=== PATIENT | female | born 1950 | race Caucasian/White ===

== ENCOUNTER 2016-11-08 10:20 | Day surgery (SDC) | payer MEDICAID, OTHER ==
--- NOTE | 2016-11-08 08:29 | HP ---
PROCEDURE DATE: 11/08/16 HISTORY OF PRESENT ILLNESS: Patient is a 66 y/o with upper esophagus problems with dysphagia. Feels likes things getting stuck when she eats. History of dilatation a year or so ago in the past. Is in need of upper endoscopy, possible dilatation again. PAST MEDICAL HISTORY: She has had history of dysphagia or esophageal narrowing in the past. Also, some reflux. CURRENT MEDICATIONS: Omeprazole, calcium, Flonase as well as some eye drops. ALLERGIES: NKDA. PAST SURGICAL HISTORY: Had EGD with dilatation in the past. FAMILY HISTORY: Negative with regards to this problem. SOCIAL HISTORY: No smoking or alcohol abuse. REVIEW OF SYSTEMS: 10 systems reviewed per admission assessment. No chest pain or palpitations. Other systems negative or noncontributory other than above and per preadmission questionnaire. PHYSICAL EXAMINATION: GENERAL: No acute distress. HEENT: Sclerae nonicteric. NECK: No JVD. CHEST: Equal excursion. Nonlabored breathing. CVS: Regular rate and rhythm. ABDOMEN: Soft. No peritoneal signs. EXTREMITIES: No significant edema. NEURO: A&O, moving extremities symmetrically. No gross motor deficits noted. IMPRESSION: 1. SYMPTOMATIC DYSPHAGIA UPPER ESOPHAGUS. [place] she would benefit from EGD, possible biopsy, possible dilatation pending operative finding. Risks and benefits explained in detail, but not limited to, bleeding; infection; small risk of bowel injury or perforation possibly requiring open procedure or major procedure and ongoing morbidity; small risk of missed or nondiagnosis or incomplete exam; possibility that if dilatation performed she could have recurrent symptoms down the road and require other procedures or repeat dilatation in the future. She also understands possibly even with dilatation, may fail to improve her symptoms if she has more of a functional or neurologic problem than a mechanical narrowing. She understands all of the above as well as risks of sedation, but not limited to. Will proceed with EGD, possible biopsy, possible dilatation as an outpatient.
[~2016-11-08 10:20] MED LIST: DIPRIVAN 200 MG/20 ML IV ONE; Ketamine HCl 50 MG/ML IJ ONE; Lactated Ringers 1,000 ML IV ONE; Lactated Ringers 1,000 ML IV SCH
[2016-11-08] MEDS ORDERED: Lactated Ringers 1,000 ML IV ONE (12:14)
[2016-11-08 13:08] VITALS: O2SAT 98
[2016-11-08 13:47] VITALS: BP 132/76; PULSE 83
--- NOTE | 2016-11-08 14:13 | OP ---
SURGERY DATE/TIME: 11/08/2016 1118 PREOPERATIVE DIAGNOSIS: Dysphagia, history of esophageal stricture and esophageal dilatation in the past. POSTOPERATIVE DIAGNOSES: 1) Esophageal stricture mid to proximal esophagus. 2) Distal gastroesophagitis versus metaplasia or Roblero's, path pending. 3) Very small hiatal hernia. 4) Mild gastritis. PROCEDURES: 1) EGD with cold biopsy of the antrum for Helicobacter pylori for MARY ANN-test. 2) Cold biopsy distal esophagus to evaluate for Roblero's esophagus. 3) Esophageal balloon dilatation, esophageal stricture, size 20 balloon dilator. SURGEON: Dr. Zach Smart. REGISTERED NURSE CARDIOVASCULAR ICU: Dheeraj Bautista, Medical Student III. ANESTHESIA: MAC. ESTIMATED BLOOD LOSS: Minimal. INDICATIONS: As noted above. Risks and benefits explained in detail and not limited to and consent obtained. DESCRIPTION OF PROCEDURE AND FINDINGS: The patient is taken to the endoscopy room. She did not have any further questions. MAC anesthesia was introduced. After official time out and no disagreement with planned procedure. Bite block positioned. Video gastroscope easily passed down the esophagus. There was a narrowed area in the mid and proximal esophagus about 23 cm or so from the incisors. There was no obvious mass in here just a narrowed stricture area with smooth mucosa. The scope was passed down through here down into the stomach to the junction of the second and third portion of duodenum. The duodenum, duodenal bulb was grossly unremarkable. Back in the stomach had some mild gastritis. There were no signs of any ulcers, masses or other mucosal lesions other than gastritis. Cold biopsy is taken of the antrum to evaluate for Helicobacter pylori for MARY ANN-test. On retroflex there is a very slight hiatal hernia, very small less than 1 cm extra around the scope. The scope is straightened. Gastroesophageal junction was noted to be about 38 cm. Some salmon-pink mucosa extending upwards whether this is short segment of Roblero's or not cold biopsy taken circumferentially around the four quadrants and sent for path today to look for Roblero's. Good hemostasis noted. Otherwise the remainder of the esophagus grossly unremarkable other than the esophageal strictures about 23 cm or so. No obvious mass to biopsy. It was felt this would benefit from dilatation. The scope passed back down in the stomach. Balloon dilator carefully inserted, pulled back up to the narrowed stricture area. It was carefully inflated to first stage for 30 to 45 seconds and then second stage for a minute and then dilated to final size 20 balloon dilator stage. However the balloon broke, a rather weak balloon. The balloon was removed. The scope was then passed back down. There was no evidence of any full thickness issues. It was felt it warranted to going up to size 20 balloon dilator. The balloon dilator is carefully inserted back in and pulled back to narrowed area. Again inflated to size 19 second stage briefly and then inflated to size 20 balloon dilator stage and left for 2 minutes. It was then decompressed and the balloon catheter removed. The scope was passed back down through esophagus and gradually withdrawn. The area was more widely patent. There was no evidence of any full thickness issues secondary to balloon dilatation. There was no family available out in the waiting area to discuss any findings with. She tolerated the procedure well. There were no immediate complications. Will keep her on some room temperature liquids for four hours and then advance to soft diet as tolerated. Have her follow up in the office next week.
== END 2016-11-08 13:35 | disposition home or self-care (01) ==
LOC: SDC 10:20
PROVIDERS: ATTEND Surgery
PROC: 0DB38ZX Excision of Lower Esophagus, Via Natural or Artificial Opening Endoscopic, Diagnostic (ICD-10-PCS; principal; 2016-11-08)
PROC: 0DB68ZX Excision of Stomach, Via Natural or Artificial Opening Endoscopic, Diagnostic (ICD-10-PCS; 2016-11-08)
PROC: 0D758ZZ Dilation of Esophagus, Via Natural or Artificial Opening Endoscopic (ICD-10-PCS; 2016-11-08)
DX: R13.10 Dysphagia, unspecified (principal); K22.2 Esophageal obstruction; K44.9 Diaphragmatic hernia without obstruction or gangrene; K29.70 Gastritis, unspecified, without bleeding
CPT/HCPCS: 00740; 36415; 87081; 88305; C1726; J2704